=== PATIENT | female | born 1960 | race Hispanic/Latino ===

== ENCOUNTER → 2023-01-17 | Outpatient (CLI) | payer BC, OTHER ==
[~2023-01-17] MED LIST: IOHEXOL-350 50ML VIAL IV ONE
== END | disposition home or self-care (01) ==
LOC: RAH 07:58
PROVIDERS: ATTEND Family Medicine
DX: R05.1 Acute cough (principal); R49.0 Dysphonia; R91.8 Other nonspecific abnormal finding of lung field; R39.89 Other symptoms and signs involving the genitourinary system
CPT/HCPCS: 71270; Q9967